=== PATIENT | female | born 1955 | race Caucasian/White ===

== ENCOUNTER 2017-10-05 18:00 | Emergency (ER) | payer MEDICAID, OTHER ==
[~2017-10-05] VITALS: Ht 154.9 cm; Wt 72.6 kg
[2017-10-05 18:05] VITALS: BP 123/66
== END 2017-10-05 21:46 | disposition home or self-care (01) ==
LOC: ER 18:13
DX: S93.492A Sprain of other ligament of left ankle, initial encounter (principal); K29.70 Gastritis, unspecified, without bleeding; W01.0XXA Fall on same level from slipping, tripping and stumbling without subsequent striking against object, initial encounter; Y93.01 Activity, walking, marching and hiking; Y92.89 Other specified places as the place of occurrence of the external cause; Y99.8 Other external cause status
CPT/HCPCS: 73610-TC; 73630-TC; A4606; Z7610